=== PATIENT | male | born 1990 | race Caucasian/White ===

== ENCOUNTER 2019-02-13 19:37 | Emergency (ER) | payer MEDICARE ==
[~2019-02-13] VITALS: Ht 172.7 cm; Wt 64.5 kg
[2019-02-13 19:39] VITALS: Ht 172.7 cm; Wt 64.5 kg
[2019-02-14] MEDS ORDERED: LORAZEPAM 1 MG TAB PO ONE ×2 (02:30→10:30)
[2019-02-14] MEDS ORDERED: RISPERIDONE 1 MG TAB PO ONE (04:00)
[2019-02-14 12:50] VITALS: BP 120/80; PULSE 88; RESP 20
== END 2019-02-14 12:50 ==
LOC: E/R 19:37
DX: F99 Mental disorder, not otherwise specified (principal); F17.210 Nicotine dependence, cigarettes, uncomplicated
CPT/HCPCS: 36415; 80053; 80307; 81003; 85025